=== PATIENT | male | born 1945 | race Caucasian/White ===

== ENCOUNTER 2017-07-16 10:19 | Day surgery (SDC) | payer MEDICARE, OTHER ==
[~2017-07-16] VITALS: Ht 185.4 cm; Wt 87.1 kg
[2017-07-16] MEDS ORDERED: IOHEXOL 350 MG/ML 100 ML BTL (for Cath Lab) OTHER ONE (10:20)
[2017-07-16] MEDS ORDERED: SODIUM CHLOR 0.9% 1000 ML INJ 1,000 ML IV SCH (11:00)
[2017-07-16 11:27] VITALS: BP 149/86; PULSE 51; RESP 17; TEMP 98.6; O2SAT 95
[2017-07-16] MEDS ORDERED: OMEGCAP PO (11:37)
[2017-07-16] MEDS ORDERED: CARV6.252 PO (11:37)
[2017-07-16] MEDS ORDERED: ASPI81TA11 PO (11:37)
[2017-07-16] MEDS ORDERED: ATOR40TA16 PO (11:37)
[2017-07-16 11:42] LABS: AUTOMATED NEUTROPHIL # 4.4 TH/MM3 (1.8-7.7); BASOPHIL % 0.4 % (0.0-2.0); EOSINOPHIL % 0.6 % (0.0-4.0); HEMO FLAGS DIFF FINAL; LYMPH % 19.5 % (9.0-44.0); LYMPHOCYTE # 1.2 TH/MM3 (1.0-4.8); MEAN CELL VOLUME 87.4 FL (80.0-100.0); MEAN CORPUSCULAR HEMOGLOBIN 28.9 PG (27.0-34.0); MEAN CORPUSCULAR HGB CONC 33.1 % (32.0-36.0); NEUT % 71.5 % (16.0-70.0); PLATELET COUNT 223 TH/MM3 (150-450); RED BLOOD COUNT 5.04 MIL/MM3 (4.50-5.90); WHITE BLOOD COUNT 6.1 TH/MM3 (4.0-11.0)
[2017-07-16 11:44] LABS: APTT (PATIENT) 27.3 SEC (24.3-30.1); PROTHROMBIN TIME - PATIENT 11.4 SEC (9.8-11.6)
[2017-07-16 11:48] LABS: BICARBONATE 27.5 MEQ/L (21.0-32.0); POTASSIUM 3.9 MEQ/L (3.5-5.1)
[2017-07-16] MEDS ORDERED: HEPARIN-NS/PF INJ 1,000 ML ONE (14:32)
[2017-07-16] MEDS ORDERED: MIDAZOLAM HCL 5 MG/5 ML VIAL ONE (14:33)
[2017-07-16] MEDS ORDERED: SODIUM CHLOR 0.9% 1000 ML INJ 500 ML IV SCH (15:54)
--- NOTE | 2017-07-16 15:58 | CATHPROC ---
[email or web address] HIS Report Study Information Study Number Admission Scheduled Start Study Start [id number] Jul 16 2017 10:19AM 07/16/2017 Jul 16 2017 2:29PM [place] [facility] Cardiac Catheterization Admit Source Facility Department Other [facility] - Human Resources Associate Physician and Clinical Staff Initial Peterson Cortés Concrete Rubber Shady Alvarenga,CRISTIANE Concrete Rubber Azul Farah,RN Recorder Azul Pereyra,RT(R) Scrub Oscar Bergman RCIS(BS) Procedures Performed Procedure Location (Site) Vessel Name Angiogram LV LV Ventricle Coronary Angiograms LCA Left Coronary Coronary Angiograms RCA Right Coronary L Heart Cath Wire insertion Fem Art (right) Femoral Art Equipment Time Housekeeping Associate Description Size Mfg Part Number Used/Scraped TRANSDUCER, BOB [id number] 14:34 Cloudy.fr * Used W/STOCKCOCK *[id number] 534-548T *[id number] 534-548T *[id number] 534-548T *[id number] 534-520T *[id number] 534-520T *[id number] 534-552S *[id number] 534-552S *[id number] 14:34 DescribeMe INDUSTRIES PACK, CCL CUSTOM * Used *[id number] 14:34 DescribeMe PACER PEN, SKIN DUAL W/ RULER * Used *[id number] 14:34 Superprotonic WIRE, 3MMJ .035 180CM 180CM Used *[id number] PROBE COVER, STERILE [id number] 14:34 [employer] MEDICAL * Used ULTRASOUND W/ GEL *[id number] 14:34 NAMIC MANIFOLD, 4 PORT * Used *[id number] 14:34 NAMIC TUBING, HIGH PRESSURE 48" 48" Used *[id number] 14:34 NYCOMED OMNIPAQUE, 350 MG, 150ML 150ML [id number] Used 15:07 NYCOMED OMNIPAQUE, 350 MG, 150ML 150ML [id number] Used [id number] 14:34 [employer] BL[employer],WARM AIR CCL * Used *[id number] 14:34 TERUMO MEDICAL SHEATH, FR5 TERUMO (10CM) FR 5 Used *[id number] History: Current Medications Medication Dosage/Unit Route Frequency Last Date/Time Taken ASA Statins (any) CARVEDILOL History: Allergies Allergy Reaction No Known Allergies History: Risk Factors Family History of Hypertension Dyslipidemia Previous ND Previous Heart Failure Premature CAD Yes Yes Yes No No Prior Valve Prior PCI Prior CABG Surgery No No No Cerebrovascular Peripheral Artery Chronic Lung On Dialysis Diabetes Disease Disease Disease No No No No No History: Stress Tests Stress or Imaging Studies Performed Yes Standard Exercise Stress Test No Stress Echo No Stress Test SPECT Stress Test SPECT Result Stress Test SPECT Ischemia Risk/Extent Yes Positive Intermediate Stress Test CMR No Cardiac CTA Coronary Calcium Score No No History: Other Disease Selection Items HTN History: Other Current Smoker Method Quit Packs a Day Years Used Pack Years No Cigarettes 40 Years Ago 2 20 40 Labs Hgb (g/dl) Hct (%) RBC (MIL/MM3) WBC (l/cumm) Platelets (thousands) 11.60-17.00 35.00-51.00 4.00-5.90 4.00-11.00 150.00-450.00 14.6 44 5 6.1 223 Glucose (mg/dl) BUN (mg/dl) Creatinine (mg/dl) BUN:Creatinine (1:x) 74.00-106.00 7.00-18.00 0.50-1.30 10.00-20.00 83 11 0.5 22 Na (meq/l) K (meq/l) Cl (meq/l) CO2 (mmol/L) Ca (mg/dl) 136.00-145.00 3.50-5.10 98.00-107.00 21.00-32.00 8.50-10.10 142 3.9 107 27.5 8.6 PT (sec) PTT (sec) INR (PTT:PT) 9.80-11.60 24.30-30.10 0.90-1.10 11.4 27.3 1 CPK-MB (ng/ML) 0.50-3.60 Not Drawn Medication Medication Total Dose (Bolus/Oral) Medication Total Dosage/Unit 1% XYLOCAINE 20 mL FENTANYL 125 mcg VERSED 5 mg Medications (Bolus/Oral) Medication Time Given Dosage/Unit Administered By Reason VERSED 07/16/2017 2:42:00 PM 2 mg Azul Farah 2 mg VERSED given in lab by Azul Farah RN via Peripheral IV. FENTANYL 07/16/2017 2:43:00 PM 50 mcg Azul Farah 50 mcg FENTANYL given in lab by Azul Farah RN via Peripheral IV. VERSED 07/16/2017 2:47:50 PM 1 mg Azul Farah 1 mg VERSED given in lab by Azul Farah RN via Peripheral IV. FENTANYL 07/16/2017 2:50:23 PM 25 mcg Azul Farah 25 mcg FENTANYL given in lab by Azul Farah RN via Peripheral IV. 1% XYLOCAINE 07/16/2017 2:50:50 PM 20 mL Peterson Campbell 20 mL 1% XYLOCAINE given in lab by Peterson Campbell in Right Groin via Subcutaneous. VERSED 07/16/2017 3:08:20 PM 2 mg Azul Farah 2 mg VERSED given in lab by Azul Farah RN via Peripheral IV. FENTANYL 07/16/2017 3:09:20 PM 50 mcg Azul Farah 50 mcg FENTANYL given in lab by Azul Farah RN via Peripheral IV. Medication (Drip) Medication Time Given Dosage/Unit Concentration/Unit Diluent (ml) Solution IV Solutions 07/16/2017 2:31:58 PM 0 mL (IV) 500 NaCl .9 IV Solutions given in lab by Azul Farah RN in Left Antecubital via Peripheral IV. Pump/Drip Flow = 20 ml/hr using NaCl .9. Initial Case Assessment Cardiovascular HR Rhythm NIBP Chest Pain 53 REG-PVC 152/68 0 Edema Present Skin color Skin None Normal Warm Dry Circulatory - Right Pulses Dorsalis Pedis Femoral 2 2 Scale (0,1,2,3,4,d) Circulatory - Left Pulses Dorsalis Pedis Femoral 2 2 Scale (0,1,2,3,4,d) Circulatory - Lower Extremities Color Lower Right Color Lower Left Normal Normal Neurological State Oriented to time-place- Alert Moves all extremities person Respiration - General Respiration Rate SpO2 (%) O2 (lpm) (B/min) 13 98 0 Final Case Assessment Cardiovascular HR Rhythm NIBP Chest Pain 54 REG-PVC 145/75 0 Edema Present Skin color Skin None Normal Warm Circulatory - Right Pulses Dorsalis Pedis Femoral 2 2 Scale (0,1,2,3,4,d) Circulatory - Left Pulses Dorsalis Pedis Femoral 2 2 Scale (0,1,2,3,4,d) Circulatory - Lower Extremities Color Lower Right Color Lower Left Normal Normal Neurological State Oriented to time-place- Alert Moves all extremities person Respiration - General Respiration Rate SpO2 (%) (B/min) 21 96 Chronological Log Time Study Chronological Log 14:28:00 Patient arrived via Bed. 14:29:01 Patient Name, D.O.B, / Armband Verified By R.N. 14:29:02 Consent signed by the physician and the patient and verified by the Human Resources Associate staff. 14:29:02 Pre-op and post- op instructions given; patient acknowledges understanding of instructions. 14:29:04 Verbal Stimulation=2 Physical Stimulation=2 Airway=2 Respiration=2 TOTAL=8. (0=absent, 1=li mited, 2=present) 14:31:00 Presedation assessment performed by Human Resources Associate RN. 14:31:27 Patient has been NPO for More than 6Hrs. 14:31:29 Skin Breakdown- none per patient. 14:31:38 Patient Warmer Placed on the Table. 14:31:41 Luis Alberto Prominences Protected 14:31:43 A # 20 IV was noted in the Antecubital (left). Grade = 0 IV Solutions given in lab by Azul Farah, RN in Left Antecubital via Peripheral IV. Pump/Dri p Flow = 20 ml/hr using 14:31:58 NaCl .9. Vitals capture started with the following parameters, Patient=Adult, Interval=5 min, Initial Pr bjbrdi=849 mmHg, 14:32:10 Deflation Rate=5 mmHg, Cuff placed on Left Leg 14:32:19 History and physical on the chart or being dictated. Assessment: Initial Case, HR=53 BPM, Rhythm=REG-PVC, ZFTG=071/68 mmhg, Chest Pain=0, Edema=None , Color=Normal, Skin = Warm, Dry Right Pulses: Edwar Ped=2, Femoral=2 Left Pulses: Edwar Ped=2, Femoral=2 14:32:21 Lower Right Extremities: Color=Normal Lower Left Extremities: Color=Normal Neurological: State=Alert, Ox3, SILVERIO Respiration: Resp=13 B/min, SpO2=98 %, O2=0 lpm 14:33:16 Reference ECG taken 14:33:19 HR=48 bpm, FKOY=607/68 mmhg, SpO2=98.0 %, Resp=13 B/min, Pain=0, Kim=10, Johnson=2 14:36:44 Bilateral groins prepped with 2% chlorhexidine, and with a 3 min. waiting time. 14:38:12 HR=50 bpm, HUIZ=493/81 mmhg, SpO2=98.0 %, Resp=21 B/min, Pain=0, Kim=10, Johnson=2 14:41:25 Pressure channel 1 zeroed. 14:42:00 2 mg VERSED given in lab by Azul Farah RN via Peripheral IV. 14:43:00 50 mcg FENTANYL given in lab by Azul Farah RN via Peripheral IV. 14:43:22 HR=56 bpm, XZNW=265/77 mmhg, SpO2=96.0 %, Resp=20 B/min, Pain=0, Kim=10, Johnson=2 14:45:03 MD arrived. 14:47:50 HR=55 bpm, OPSK=915/71 mmhg, SpO2=95 %, Resp=8 B/min, Pain=0, Kim=10, Johnson=2 14:47:50 1 mg VERSED given in lab by Azul Farah, CRISTIANE via Peripheral IV. Time Out. Correct patient, correct procedure,correct physician, ,power injector not loaded with contrast with surgical 14:50:15 team present. Time Out Concurred by MD, individual staff and SUPERVISOR ELECTRONICS PROCESSING in procedure 14:50:23 25 mcg FENTANYL given in lab by Azul Farah RN via Peripheral IV. 14:50:42 Case Start 14:50:44 Verbal Stimulation=2 Physical Stimulation=2 Airway=2 Respiration=2 TOTAL=8. (0=absent, 1=li mited, 2=present) 14:50:50 20 mL 1% XYLOCAINE given in lab by Peterson Campbell in Right Groin via Subcutaneous. 14:50:58 POWER INJECTOR LOADED NOW BY Joe FARAH AND VERIFIED BY Niharika BERGMAN 14:51:51 Verbal Stimulation=2 Physical Stimulation=2 Airway=2 Respiration=2 TOTAL=8. (0=absent, 1=li mited, 2=present) 14:52:32 Access site was Right Femoral Artery. 14:52:37 A wire was inserted via Fem Art (right). 14:52:38 A SHEATH, FR5 TERUMO (10CM) FR 5 was advanced into the Fem Art (right) using the Percutaneo us technique. A PIGTAIL ANG. INFINITI CATHETER FR 5 was advanced over a wire. OMNIPAQUE, 350 MG, 150ML 150ML was used 14:53:05 for injections. 14:53:30 HR=51 bpm, HMXY=345/72 mmhg, SpO2=96.0 %, Resp=16 B/min, Pain=0, Kim=10, Johnson=2 Recorded Pressure: LV, HR=50, Condition=Condition 1 14:53:33 (Left Ventricle) LV 151/8/13 14:53:51 The LV was injected at 10 cc/sec for a total of 30. OMNIPAQUE, 350 MG, 150ML 150ML used. Recorded Pressure: LV, Ao, HR=50, Condition=Condition 1 14:55:06 (Left Ventricle) LV 137/5/11, (Aorta) Ao 135/65/93 14:55:26 Catheter was removed A JL 4.0 INFINITI CATHETER FR 5 was advanced over a wire. OMNIPAQUE, 350 MG, 150ML 150ML was us ed for 14:55:47 injections. 14:56:13 Catheter was removed A AR MOD INFINITI CATHETER FR 5 was advanced over a wire. OMNIPAQUE, 350 MG, 150ML 150ML was us ed for 14:56:44 injections. 14:58:28 The RCA was injected and visualized at various angles. OMNIPAQUE, 350 MG, 150ML 150ML used . 14:58:29 HR=48 bpm, FKTA=201/74 mmhg, SpO2=95.0 %, Resp=21 B/min, Pain=0, Kim=10, Johnson=2 Recorded Pressure: Ao, HR=49, Condition=Condition 1 14:58:36 (Aorta) Ao 152/70/100 14:59:08 Catheter was removed A JL 5.0 INFINITI CATHETER FR 5 was advanced over a wire. OMNIPAQUE, 350 MG, 150ML 150ML was us ed for 14:59:28 injections. 15:01:12 The LCA was injected and visualized at various angles. OMNIPAQUE, 350 MG, 150ML 150ML used . 15:02:51 HR=59 bpm, ZVUR=019/75 mmhg, SpO2=96.0 %, Resp=13 B/min, Pain=0, Kim=10, Johnson=2 15:03:29 Case End Assessment: Final Case, HR=54 BPM, Rhythm=REG-PVC, MUTC=102/75 mmhg, Chest Pain=0, Edema=None, Color=Normal, Skin = Warm Right Pulses: Edwar Ped=2, Femoral=2 Left Pulses: Edwar Ped=2, Femoral=2 15:05:24 Lower Right Extremities: Color=Normal Lower Left Extremities: Color=Normal Neurological: State=Alert, Ox3, SILVERIO Respiration: Resp=21 B/min, SpO2=96 % 15:06:12 Catheter(s) removed without difficulty 15:06:19 Sterile dressing applied to site 15:06:19 No case complications noted. 15:06:20 Cine recording checked. 15:06:23 Bedside Report will be given. 15:06:25 Contrast Scanned 15:06:29 A Left Heart Cath was performed. 15:07:00 Patient moved to stretcher 15:07:02 Clinical correlaton risk stratification. 15:07:52 HR=57 bpm, GFHF=594/76 mmhg, SpO2=97.0 %, Resp=11 B/min, Pain=0, Kim=10, Johnson=2 15:08:20 2 mg VERSED given in lab by Azul Farah, CRISTIANE via Peripheral IV. 15:09:20 50 mcg FENTANYL given in lab by Azul Farah, CRISTIANE via Peripheral IV. 15:13:30 HR=53 bpm, OFLP=674/76 mmhg, SpO2=97.0 %, Resp=14 B/min, Pain=0, Kim=10, Johnson=2 15:14:14 Sheath removed; pressure applied to access site. OSCAR BERGMAN 15:17:50 HR=52 bpm, BJUO=547/81 mmhg, SpO2=96.0 %, Resp=17 B/min, Pain=0, Kim=10, Johnson=2 15:22:51 HR=49 bpm, FOVF=289/86 mmhg, SpO2=95.0 %, Resp=26 B/min, Pain=0, Kim=10, Johnson=2 15:28:37 HR=50 bpm, DYPW=815/74 mmhg, SpO2=95.0 %, Resp=21 B/min, Pain=0, Kim=10, Johnson=2 15:29:02 HEMOSTASIS ACHIEVED 15:32:21 Vitals capture stopped. End Study - Contrast Media Used In Study Contrast Total Opened (mL) Total Used (mL) Total Wasted (mL) Omnipaque 80 80 0 End Study - Maximum Contrast Load Max Contrast Load (mL) 870.9 End Study - Radiation Exposure Fluoro Time (minutes) 1.8 End Study - Patient Disposition Complications Transferred To No Outpatient Bed
--- NOTE | 2017-07-16 16:42 | MR ---
cc: JOSE M RESENDIZ DATE: 07/16/2017 INDICATION Ischemic cardiomyopathy, moderate risk nuclear myocardial perfusion study, abnormal electrocardiogram. PREOPERATIVE EVALUATION PROCEDURE PERFORMED 1. Retrograde left heart catheterization with left ventriculography and selective coronary angiography. 2. Moderate sedation. ACCESS SITE: Right femoral artery. EQUIPMENT USED: 5 Sammarinese pigtail catheter. 5 Sammarinese JL 5 AR-1 modified coronary catheters. MEDICATIONS Versed. Fentanyl CONTRAST: IV contrast Omnipaque 80 cc. COMPLICATIONS None. BLOOD LOSS Less then 10 cc. METHOD OF HEMOSTASIS: Manual compression. RESULTS 1. Hemodynamics: Heart rate of 58 mmHg. Left ventricular end-diastolic pressure 5 mmHg. Left ventricle 140/5. Aorta 140/70/100. 2. Left ventriculography: Left ventricular ejection fraction 45%, wall motion - lateral hypokinesis, no mitral regurgitation. 3. Coronary angiography: Left main coronary artery patent. Left anterior descending coronary artery patent. D1 patent. Left circumflex artery has 40% stenosis in the mid portion, OM1 patent. OM2 patent. The right coronary is a dominant vessel which is patent, PDA patent, PLV patent. DIAGNOSIS: 1. Mild coronary artery disease. 2. Mild left ventricular systolic dysfunction. DISPOSITION: Mr. Schwarz will be reassured about his cardiac status. His study revealed no evidence of significant obstructive coronary disease and mild left ventricular systolic function. He can be cleared for his upcoming orthopedic surgery. His risk of perioperative complications is low. We will continue medical management including aggressive modification of his cardiac risk factors. I will see him back for followup in our office after discharge. MD REJI Salguero/parviz /3:51 PM /4:00 PM CITLALI
[2017-07-16 17:05] LABS: HDL CHOLESTEROL 59.8 MG/DL (40.0-60.0)
== END 2017-07-16 19:45 | disposition home or self-care (01) ==
LOC: HDOC 10:19 → HDIC 10:20 → HDOC 19:45
PROVIDERS: ATTEND Internal Medicine Interventional Cardiology
DX: I25.10 Atherosclerotic heart disease of native coronary artery without angina pectoris (principal); I25.5 Ischemic cardiomyopathy; I10 Essential (primary) hypertension; G47.33 Obstructive sleep apnea (adult) (pediatric); E78.5 Hyperlipidemia, unspecified; M25.562 Pain in left knee; M19.90 Unspecified osteoarthritis, unspecified site; Z01.818 Encounter for other preprocedural examination; Z01.810 Encounter for preprocedural cardiovascular examination
CPT/HCPCS: 80048; 80061; 85025; 85610; 85730; 93458; C1769; C1893; J1644; J2250; J3010; Q9967

== ENCOUNTER → 2017-10-25 | Outpatient (CLI) | payer MEDICARE, OTHER ==
[~2017-10-25] MED LIST: ASPI81TA23 PO; ATOR40TA16 PO; CARV6.252 PO; OMEGCAP PO
[2017-10-25 09:35] LABS: AUTOMATED NEUTROPHIL # 5.6 TH/MM3 (1.8-7.7); BASOPHIL # 0.1 TH/MM3 (0-0.2); BASOPHIL % 0.7 % (0.0-2.0); EOSINOPHIL # 0.1 TH/MM3 (0-0.4); EOSINOPHIL % 1.2 % (0.0-4.0); HEMATOCRIT 42.4 % (39.0-51.0); HEMO FLAGS DIFF FINAL; LYMPH % 16.6 % (9.0-44.0); LYMPHOCYTE # 1.3 TH/MM3 (1.0-4.8); MEAN CELL VOLUME 87.4 FL (80.0-100.0); MEAN CORPUSCULAR HEMOGLOBIN 29.4 PG (27.0-34.0); MEAN CORPUSCULAR HGB CONC 33.7 % (32.0-36.0); MONO % 8.4 % (0.0-8.0); NEUT % 73.1 % (16.0-70.0); PLATELET COUNT 220 TH/MM3 (150-450); RED BLOOD COUNT 4.86 MIL/MM3 (4.50-5.90); RED CELL DISTRIBUTION WIDTH 13.1 % (11.6-17.2); WHITE BLOOD COUNT 7.6 TH/MM3 (4.0-11.0)
[2017-10-25 09:43] LABS: INTERNATIONAL NORMALIZED RATIO 1.1 RATIO; PROTHROMBIN TIME - PATIENT 10.8 SEC (9.8-11.6)
[2017-10-25 09:52] LABS: WESTERGREN SEDIMENTATION RATE 42 mm/hr (0-20)
[2017-10-25 09:58] LABS: BACTERIA, URINE RARE /hpf; BLOOD, URINE TRACE (NEG); COMMENT (UR) CULT NOT INDICATED; CULTURE IF INDICATED CULT NOT INDICATED; GLUCOSE,URINE NEG (NEG); KETONE, URINE NEG (NEG); NITRITE,URINE NEG (NEG); PH, URINE 6.5 (5.0-8.5); URINE COLOR YELLOW (YELLW/STRAW)
[2017-10-25 09:59] LABS: ANION GAP 7 MEQ/L (5-15); AST (GOT) 25 U/L (15-37); BICARBONATE 27.2 MEQ/L (21.0-32.0); BLOOD UREA NITROGEN 9 MG/DL (7-18); CHLORIDE 104 MEQ/L (98-107); GLOMERULAR FILTRATION RATE 104 ML/MIN (>89); GLUCOSE,FASTING 77 MG/DL (74-99); POTASSIUM 4.1 MEQ/L (3.5-5.1); SODIUM (NA) 138 MEQ/L (136-145)
--- NOTE | 2017-10-25 09:59 | RADRPT ---
EXAM DATE/TIME: 10/25/2017 09:45 [facility] COMPARISON: No previous studies available for comparison. INDICATIONS : Evaluate for pneumonia, pneumothorax or communicable disease. Left knee replacement on 11/11/17. MEDICAL HISTORY : Myocardial infarction. SURGICAL HISTORY : None. ENCOUNTER: Initial ACUITY: 1 day PAIN SCORE: 0/10 LOCATION: Bilateral chest FINDINGS: PA and lateral views of the chest demonstrate the lungs to be symmetrically aerated without evidence of mass, infiltrate or effusion. The cardiomediastinal contours are unremarkable. Osseous structure s are intact. CONCLUSION: No acute disease. Kamaljit Kelly MD FACR on October 25, 2017 at 9:56 Board Certified Radiologist. This report was verified electronically.
[2017-10-25 10:00] LABS: ALT (GPT) 46 U/L (12-78)
[2017-10-25 10:03] LABS: ALKALINE PHOSPHATASE 91 U/L (45-117); TOTAL BILIRUBIN ADULT 0.5 MG/DL (0.2-1.0)
--- NOTE | 2017-10-27 23:45 | EKG ---
Date Performed: 10/25/2017 Time Performed: 09:19:48 PTAGE: 72 years EKG: SINUS BRADYCARDIA WITH FIRST DEGREE AV BLOCK MODERATE INTRAVENTRICULAR CONDUCTION DELAY ABN ORMAL ECG NO PREVIOUS TRACING DOCTOR: Dylon Chávez Interpretating Date/Time 10/27/2017 23:43:05
== END ==
LOC: CPRE 08:59
PROVIDERS: ATTEND Orthopaedic Surgery Sports Medicine
DX: Z01.812 Encounter for preprocedural laboratory examination (principal); Z01.810 Encounter for preprocedural cardiovascular examination; Z01.811 Encounter for preprocedural respiratory examination; M17.12 Unilateral primary osteoarthritis, left knee
CPT/HCPCS: 36415; 71020; 80053; 81001; 85025; 85610; 85652; 85730; 93005

== ENCOUNTER 2017-11-11 08:14 | Inpatient (IN) | payer MEDICARE, OTHER ==
[~2017-11-11] VITALS: Ht 185.4 cm; Wt 88.9 kg
[2017-11-11] MEDS ORDERED: HYDR-3288 PO (08:36)
[2017-11-11] MEDS ORDERED: ENOX40P SQ (08:37)
[2017-11-11] MEDS ORDERED: ASPI81CH6 CHEW (08:38)
[2017-11-11] MEDS ORDERED: Post-op Orders (for Pharmacy) XX ONE (08:45)
[2017-11-11] MEDS ORDERED: ceFAZolin 2 GM PREMIX 50 ML IV SCH (09:45)
[2017-11-11] MEDS ORDERED: POVIDONE IODINE 7.5% SCRUB 118 ML BOTTLE TOPICAL SCH (09:45)
[2017-11-11] MEDS ORDERED: CHLORHEXIDINE GLUCONATE 4% SOLN 120 ML BTL TOPICAL SCH (09:45)
[2017-11-11] MEDS ORDERED: POVIDONE IODINE 5% (ANTISEPSIS KIT) 4 APPLICATIONS EACH NARE PRN (09:45)
[2017-11-11] MEDS ORDERED: METOPROLOL TARTRATE 25 MG TAB PO PRN (09:45)
[2017-11-11] MEDS ORDERED: INSULIN HUMAN REGULAR 1,000 UNITS/10 ML VIAL SQ PRN (09:45)
[2017-11-11] MEDS ORDERED: LACTATED RINGER'S 1000 ML IV PRN (09:45)
[2017-11-11] MEDS ORDERED: CHLORHEXIDINE GLUCONATE 2 % 1 PACK (2 CLOTHS) TOPICAL PRN (09:45)
[2017-11-11] MEDS ORDERED: SODIUM CHLORID 0.9% 500 ML IV PRN (09:45)
[2017-11-11] MEDS ORDERED: VANCOMYCIN 1000 MG/NS 250 ML (for <70 kg) IV SCH ×2 (09:45)
[2017-11-11] MEDS ORDERED: TRANEXAMIC PERI-ARTICULAR 3,000 MG/NS 100 ML P-ARTICULR SCH ×2 (09:45)
[2017-11-11] MEDS ORDERED: ONDANSETRON HCL 4 MG/2 ML VIAL IVP PRN (10:00)
[2017-11-11] MEDS ORDERED: diphenhydrAMINE HCL 50 MG/ML VIAL IV PUSH PRN (10:00)
[2017-11-11] MEDS: SODIUM CHLOR 0.9% 1000 ML INJ 1,000 ML IV SCH (10:00)
[2017-11-11] MEDS ORDERED: ZOLPIDEM TARTRATE 5 MG TAB PO PRN (10:00)
[2017-11-11] MEDS: CARVEDILOL 6.25 MG TAB PO SCH ×2 (10:00→21:51)
[2017-11-11] MEDS ORDERED: BISACODYL 10 MG SUPP RECTAL PRN (10:00)
[2017-11-11] MEDS ORDERED: ROPIVACAINE PERI-ARTICULAR INJECTION. P-ARTICULR SCH ×5 (10:00)
[2017-11-11] MEDS ORDERED: MORPHINE SULFATE 2 MG/ML INJ IV PUSH PRN (10:00)
[2017-11-11] MEDS ORDERED: ACETAMINOPHEN/HYDROcodone 325 MG/7.5 MG TAB PO PRN (10:00)
[2017-11-11] MEDS ORDERED: TRANEXAMIC ACID INJ 1,330 MG in SODIUM CHLORIDE 0.9% INJ 100 ML IV SCH (10:00)
[2017-11-11] MEDS ORDERED: BUPIVACAINE LIPOSOME PF 1.3% 20 ML VIAL ONE ×2 (10:05→10:46)
[2017-11-11] MEDS ORDERED: DEXAMETHASONE SOD PHOS 20 MG/5 ML VIAL IV SCH (11:00)
[2017-11-11] MEDS ORDERED: GENTAMICIN SULFATE 80 MG/2 ML VIAL ONE ×2 (11:26→11:28)
[2017-11-11] MEDS ORDERED: ONDANSETRON HCL 4 MG/2 ML VIAL IV ONE (12:00)
[2017-11-11] MEDS ORDERED: ROCURONIUM INJ 50 MG/5 ML SYRINGE IV PUSH ONE (12:00)
[2017-11-11] MEDS ORDERED: PROPOFOL 200 MG/20 ML AMP IV ONE (12:00)
[2017-11-11] MEDS ORDERED: SODIUM CHLORIDE 0.9% 20 ML VIAL IV ONE (12:00)
[2017-11-11] MEDS ORDERED: ePHEDrine/NS 25 MG/5 ML SYRINGE IV ONE (12:00)
[2017-11-11] MEDS ORDERED: DO NOT ADM ANY ANTICOAGULANT DRUGS PRN (13:07)
--- NOTE | 2017-11-11 13:23 | MP ---
cc: MATHEW MONREAL M.D. DATE OF SURGERY: 11/11/2017 PREOPERATIVE DIAGNOSIS Left knee osteoarthritis. POSTOPERATIVE DIAGNOSIS Left knee osteoarthritis. PROCEDURE Left total knee arthroplasty. SURGEON Dr. Mathew Monreal. HIGH LIFT MULE OPERATOR MADI Chaparro. ANESTHESIA Spinal with an adductor canal nerve block. ESTIMATED BLOOD LOSS 50 cc. TOURNIQUET TIME 26 minutes at 250 mmHg. COMPLICATIONS None. IMPLANTS USED DePuy Attune, size 8 posterior stabilized femoral component, size 8 rotating platform tibia baseplate, size 5 mm polyethylene tibial insert, size 38 patella. JUSTIFICATION This patient is a 72-year-old male with a history of significant osteoarthritis involving the left knee. He has severe disabling pain with standing, walking and weightbearing activities which has been progressive in nature and failure of conservative treatment. Conservative treatment has consisted of medication, therapy, injections, ambulatory assisted aids, home exercise program and activity modification. The patient is not overweight. X-rays of the left knee reveal degenerative osteoarthritis with joint space narrowing, subchondral sclerosis, subchondral cysts, osteophyte formation and associated deformity. The patient was counseled of the risks, benefits and alternatives to a total knee arthroplasty. The risks were discussed which include but limited to anesthesia, bleeding, infection, damage to nerves and blood vessels, pain, stiffness, failure of components, blood clots, pulmonary embolism and . The patient's pain is severe. He favored the benefits over the risks. He did wish to proceed with surgery. PROCEDURE IN DETAIL A written consent was obtained. The patient was identified by name, taken to the operating room and placed supine on the operating table. Spinal anesthesia was administered as well as two grams of IV Ancef and one gram of IV vancomycin. A well-padded tourniquet was placed on the left thigh. The left lower extremity was prepped and draped using isopropyl alcohol, Hibiclens solution and ChloraPrep solution. After a timeout was performed an Esmarch bandage was used to exsanguinate the left lower extremity and tourniquet inflated to 250 mmHg. A longitudinal incision was made over the anterior aspect of the left knee. A medial parapatellar arthrotomy was performed. The patella was everted. A patellar resection guide was used to resect 9 mm of patella. The size 38 mm guide was placed. Three drill holes were placed. The 38 mm trial fit well. Attention was turned to the femur. An intramedullary guide was placed. The distal femoral guide was set to remove 10 mm of distal femur 5 degrees off the anatomic valgus axis alignment. An oscillating saw was used to perform the distal femoral cut. Attention was turned to the tibia where an extramedullary tibial guide was set to remove 5 mm off the lowest portion of the medial tibial plateau. The tibia guide was pinned in place and the tibia cut was performed. A 5 mm spacer block showed full extension. Attention was turned back to the femur where the AP sizing block measured size 8. The anterior reference 3 degree external rotation guide was used to pin a size [address] The anterior, posterior and chamfer cuts were performed. A size 8 PCL box guide was pinned in place and the PCL was box cut with an oscillating saw. The medial and lateral meniscus remnants were removed as well as bone and soft tissue debris from the posterior portion of the knee. A size 8 tibia baseplate was pinned in place and the tibia was drilled and punched. The trial components were evaluated and final components cemented in place. With the current components the leg could achieve full extension to 0 degrees and flexion to 140. There was no evidence of tibial lift-off. Varus-valgus balance appeared appropriate and symmetric and the patella was noted to track centrally. The tourniquet was deflated. Bovie cautery was used for hemostasis. The surgical wound was thoroughly irrigated with sterile saline pulse lavage antibiotic-impregnated solution. The arthrotomy incision was closed with #1 Vicryl suture, the subcutaneous layer with 2-0 Vicryl suture and the skin was closed with Dermabond. Sterile dressing was applied. The patient tolerated the procedure well with no intraoperative complications noted. Otis Hooper, physician business assistant certified, was present during the entire procedure to include patient positioning and the procedure itself. The medical necessity of a physician business assistant was indicated in this case due to the complexity of the procedure. He assisted with appropriate manipulation of the leg and also retraction of muscle, tendon, bone and neurovascular structures. He assisted with preparation of bone and also implantation of the prosthetic replacement. MD MALIHA Jaquez/LYNETTE /12:45 PM /1:03 PM
[2017-11-11] MEDS ORDERED: MIDAZOLAM HCL 2 MG/2 ML VIAL ONE (13:26)
--- NOTE | 2017-11-11 14:33 | RADRPT ---
EXAM DATE/TIME: 11/11/2017 13:32 [facility] COMPARISON: No previous studies available for comparison. INDICATIONS : Post op left knee surgery. MEDICAL HISTORY : None. SURGICAL HISTORY : None. ENCOUNTER: Initial ACUITY: 1 day PAIN SCORE: 0/10 LOCATION: Left knee FINDINGS: 2 views of the knee show a total knee prosthesis in good position. No fracture or dislocation is obse rved. Soft tissue swelling is noted. Air is noted within the joint. CONCLUSION: Total knee arthroplasty in good position. Luis Jo Jr., MD on November 11, 2017 at 14:31 Board Certified Radiologist. This report was verified electronically.
[2017-11-11 16:00] VITALS: BP 123/65; PULSE 66; RESP 19; TEMP 95.8; O2SAT 92
--- NOTE | 2017-11-11 16:20 | PD.CONS ---
HPI Service [facility] Hospitalists Consult Requested By Dr. Rodriguez Reason for Consult Medical management Primary Care Physician Alyssa Veronica M.D. Diagnoses: (1) Hypertension (2) Primary localized osteoarthrosis, lower leg History of Present Illness 72 Y/O male with medical history significant for HTN, osteoarthritis admitted for left knee arthroplasty. The patient has been having issues with osteoarthritis of his knees. He has been followed by orthopedics and medical therapy. He was admitted for left knee arthroplasty. Hospitalist service consulted for medical management. He does have hypertension that has been controlled. He did have preoperative testing including a heart catheterization by court officer, Dr. lang. He was found to have mild CAD and mild LV dysfunction. He denies having any chest pain or shortness of breath on exertion. Patient is seen postoperatively in the recovery area. He reports his pain is controlled. No complaints. Review of Systems Constitutional: DENIES: Fever, Chills Musculoskeletal: COMPLAINS OF: Joint pain, Stiffness Except as stated in HPI: all other systems reviewed are Neg Past Family Social History Allergies: Coded Allergies: No Known Allergies (Verified , 11/11/17) Past Medical History Hypertension Mild CAD Mild LV dysfunction Osteoarthritis Past Surgical History Right knee reconstructive surgery. Reported Medications Reported Meds & Active Scripts Active Aspirin Low Dose (Aspirin) 81 Mg Chew 81 Mg CHEW BID 30 Days Lovenox Inj (Enoxaparin Sodium) 40 Mg/0.4 Ml Syr 40 Mg SQ DAILY [place] (Hydrocodone-Acetaminophen) 7.5-325 mg Tab 1-2 Tab PO Q6H PRN Reported [place]-3 Fish Oil/Vitamin (Fish Oil-Cholecalciferol) 1,000-1,000 Mg Cap 1 Cap PO DAILY Aspirin EC (Aspirin) 81 Mg Tabdr 81 Mg PO DAILY Atorvastatin (Atorvastatin Calcium) 40 Mg Tab 40 Mg PO HS Carvedilol 6.25 Mg Tab 6.25 Mg PO BID Family History Both parents with history of hypertension and hyperlipidemia Social History Patient does not use tobacco or alcohol. Physical Exam Vital Signs Vital Signs Date Time Temp Pulse Resp B/P (MAP) Pulse Ox O2 Delivery O2 Flow Rate FiO2 11/11/17 14:30 97.7 88 12 129/61 (83) 97 Nasal Cannula 2 11/11/17 14:15 74 16 119/58 (78) 96 Nasal Cannula 2 11/11/17 14:00 80 15 130/62 (84) 96 Nasal Cannula 2 11/11/17 13:45 58 18 144/69 (94) 96 Nasal Cannula 2 11/11/17 13:30 56 16 114/60 (78) 95 Nasal Cannula 2 11/11/17 13:15 80 12 136/74 (94) 94 Nasal Cannula 2 11/11/17 13:08 97.5 68 18 133/60 (84) 93 Nasal Cannula 2 11/11/17 09:15 97.9 51 18 139/72 (94) 96 Physical Exam CONSTITUTIONAL/GENERAL: This is an adequately nourished patient, in no apparent distress. Vital signs reviewed SKIN: No jaundice, rashes, or concerning lesions. Not diaphoretic. HEAD: Atraumatic. Normocephalic. EYES: Pupils equal and round and reactive. Extra ocular motions are intact. No scleral icterus. No injection or drainage. ENT: Hearing grossly normal. Nose without drainage. Throat without visible erythema, exudates, masses, or lesions. NECK: Trachea midline. Neck is supple, non-tender. No palpable thyroid enlargement or nodularity. CARDIOVASCULAR: Normal rate and regular rhythm without murmurs, gallops, or rubs. No JVD. Peripheral pulses 2+ and symmetric. RESPIRATORY/CHEST: Symmetric, unlabored respirations. Breath sounds equal and clear to auscultation bilaterally. No wheezes, crackles, rales, or rhonchi. GASTROINTESTINAL: Abdomen soft, non-tender, non-distended. No hepato- splenomegaly, or palpable masses. No guarding. Bowel sounds present. MUSCULOSKELETAL: Left knee in a postoperative splint. Neurovascularly intact at the toes. No lower extremity edema. NEUROLOGICAL: Awake and alert. Motor and sensory grossly within normal limits. Follows commands. Move all extremities spontaneously. No focal deficits. PSYCHIATRIC: No obvious mood problems. No apparent hallucinations or other psychotic thought process. Imaging Last Impressions Knee X-Ray 11/11/17 0813 Signed Impressions: Service Date/Time: Saturday, November 11, 2017 13:32 - CONCLUSION: Total knee arthroplasty in good position. Luis Jo Jr., MD Assessment and Plan Problem List: (1) CAD (coronary artery disease) ICD Code: I25.10 - Atherosclerotic heart disease of [place] coronary artery without angina pectoris (2) Primary localized osteoarthrosis, lower leg ICD Code: M17.10 - Unilateral primary osteoarthritis, unspecified knee (3) Hypertension ICD Code: I10 - Essential (primary) hypertension Assessment and Plan 72-year-old male admitted with: Osteoarthritis of the left knee status post arthroplasty: - Continue routine postoperative care per orthopedics. - Pain control - PT. Hypertension: - Continue Coreg Mild CAD: Recent heart catheterization. No obstructive lesions. - Continue Coreg, aspirin, and statin GI prophylaxis:Stool softener PRN constipation. DVT PPx: Pharmacologic prophylaxis when okay with orthopedics. Erlin Orellana MD Nov 11, 2017 16:20
--- NOTE | 2017-11-11 17:31 | HHI.FF ---
Face to Face Verification Diagnosis: (1) Primary localized osteoarthrosis, lower leg Physical Therapy Gait training, Safety evaluation, Transfer training, bed to chair Knee: Total knee, Protocol: Left, Full weight bearing Left LE Weight Bearing: WB as tolerated Nursing RN: 3 days/week x 2 weeks Nursing: Magdy teaching, Dressing changes Dressing Changes: Daily dressing change I have seen patient Juliocesar Schwarz on 11/11/17. My clinical findings support the need for the requested home health care services because: Limited ability to care for self High risk of falls I certify that my clinical findings support that this patient is homebound because: Post-op weakness Unsteady gait/balance Alexandro Hooper Nov 11, 2017 17:31
--- NOTE | 2017-11-11 17:31 | HHI.DCPOC ---
Discharge Care Plan Diagnosis: (1) Primary localized osteoarthrosis, lower leg Your Health Problems Are: Difficulty with ADL Goals to Promote Your Health * To prevent worsening of your condition and complications * To maintain your health at the optimal level Directions to Meet Your Goals Take your medications as prescribed Follow your dietary instruction Follow activity as directed Keep your appointments as scheduled Take your immunizations and boosters as scheduled If your symptoms worsen call your PCP, if no PCP go to Urgent Care Center or Emergency Room Smoking is Dangerous to Your Health. Avoid second hand smoke Call the 24-hour hour crisis hotline for domestic abuse at Alexandro Hooper Nov 11, 2017 17:31
[2017-11-11] MEDS ORDERED: WALKER WHEELS/F1 MIS (17:33)
[2017-11-11] MEDS ORDERED: COMMODE 3-IN-11 MIS (17:33)
[2017-11-11] MEDS ORDERED: CPMMACHINE (17:33)
[2017-11-11 20:14] VITALS: BP 106/60; PULSE 68; RESP 17; TEMP 97.1; O2SAT 93
[2017-11-11 23:25] VITALS: BP 102/57; PULSE 62; RESP 16; TEMP 96.2; O2SAT 93
[2017-11-12] MEDS: SODIUM CHLOR 0.9% 1000 ML INJ 1,000 ML IV SCH ×2 (01:26→06:00)
[2017-11-12 04:54] VITALS: BP 117/67; PULSE 52; RESP 17; TEMP 96.5; O2SAT 97
[2017-11-12] MEDS: ACETAMINOPHEN/HYDROcodone 325 MG/7.5 MG TAB PO PRN ×3 (07:23→12:33)
[2017-11-12] MEDS: CARVEDILOL 6.25 MG TAB PO SCH (07:23)
[2017-11-12 08:00] VITALS: BP 142/75; PULSE 56; RESP 20; TEMP 97.4; O2SAT 96
--- NOTE | 2017-11-12 08:36 | PD.ORT.PN ---
Subjective Post Op Day #: 1 Subjective Remarks minimal pain Objective Vitals Vital Signs Date Time Temp Pulse Resp B/P (MAP) Pulse Ox O2 Delivery O2 Flow Rate FiO2 11/12/17 04:54 96.5 52 17 117/67 (84) 97 11/11/17 23:25 96.2 62 16 102/57 (72) 93 11/11/17 20:14 97.1 68 17 106/60 (75) 93 11/11/17 16:00 95.8 66 19 123/65 (84) 92 11/11/17 14:30 97.7 88 12 129/61 (83) 97 Nasal Cannula 2 11/11/17 14:15 74 16 119/58 (78) 96 Nasal Cannula 2 11/11/17 14:00 80 15 130/62 (84) 96 Nasal Cannula 2 11/11/17 13:45 58 18 144/69 (94) 96 Nasal Cannula 2 11/11/17 13:30 56 16 114/60 (78) 95 Nasal Cannula 2 11/11/17 13:15 80 12 136/74 (94) 94 Nasal Cannula 2 11/11/17 13:08 97.5 68 18 133/60 (84) 93 Nasal Cannula 2 11/11/17 09:15 97.9 51 18 139/72 (94) 96 I/O 11/11/17 11/11/17 11/11/17 11/12/17 11/12/17 11/12/17 07:00 15:00 23:00 07:00 15:00 23:00 Intake Total 1500 ml 240 ml 240 ml Output Total 1600 ml 400 ml 300 ml Balance -100 ml 240 ml -160 ml -300 ml Intake Oral 240 ml 240 ml Other 1500 ml Output Urine Total 1500 ml 400 ml 300 ml Estimated Blood Loss 100 ml # Voids 0 # Bowel Movements 0 0 Objective Remarks in bed, nad incision no erythema, no drainage able to do straight leg raise neg homans nvi Assessment & Plan Ortho Post Op Day #: 1 Problem List: Assessment and Plan s/p L TKA wbat daily dressing changes lovenox d/c planning home with hhc and pt - cleared today if does well in PT rx in chart f/up dr. santiago 2 weeks Alexandro Hooper Nov 12, 2017 08:36
[2017-11-12 08:42] LABS: HEMATOCRIT 38.5 % (39.0-51.0); MEAN CELL VOLUME 86.7 FL (80.0-100.0); MEAN CORPUSCULAR HGB CONC 33.4 % (32.0-36.0); PLATELET COUNT 232 TH/MM3 (150-450); RED BLOOD COUNT 4.45 MIL/MM3 (4.50-5.90); RED CELL DISTRIBUTION WIDTH 12.4 % (11.6-17.2); REVIEW FLAG FINAL; WHITE BLOOD COUNT 18.4 TH/MM3 (4.0-11.0)
[2017-11-12 09:06] LABS: BICARBONATE 25.8 MEQ/L (21.0-32.0); POTASSIUM 4.2 MEQ/L (3.5-5.1)
--- NOTE | 2017-11-12 09:35 | HHI.PR ---
Subjective Remarks Patient reports is feeling great. Eager to go home today. Objective Vitals Vital Signs Date Time Temp Pulse Resp B/P (MAP) Pulse Ox O2 Delivery O2 Flow Rate FiO2 11/12/17 04:54 96.5 52 17 117/67 (84) 97 11/11/17 23:25 96.2 62 16 102/57 (72) 93 11/11/17 20:14 97.1 68 17 106/60 (75) 93 11/11/17 16:00 95.8 66 19 123/65 (84) 92 11/11/17 14:30 97.7 88 12 129/61 (83) 97 Nasal Cannula 2 11/11/17 14:15 74 16 119/58 (78) 96 Nasal Cannula 2 11/11/17 14:00 80 15 130/62 (84) 96 Nasal Cannula 2 11/11/17 13:45 58 18 144/69 (94) 96 Nasal Cannula 2 11/11/17 13:30 56 16 114/60 (78) 95 Nasal Cannula 2 11/11/17 13:15 80 12 136/74 (94) 94 Nasal Cannula 2 11/11/17 13:08 97.5 68 18 133/60 (84) 93 Nasal Cannula 2 I/O 11/11/17 11/11/17 11/11/17 11/12/17 11/12/17 11/12/17 06:59 14:59 22:59 06:59 14:59 22:59 Intake Total 1500 ml 240 ml 240 ml Output Total 1600 ml 400 ml 300 ml Balance -100 ml 240 ml -160 ml -300 ml Intake Oral 240 ml 240 ml Other 1500 ml Output Urine Total 1500 ml 400 ml 300 ml Estimated Blood Loss 100 ml # Voids 0 # Bowel Movements 0 0 Result Diagram: 11/12/17 0811/12/17 0812 Objective Remarks GENERAL: This is a well-nourished, well-developed patient, in no apparent distress. CARDIOVASCULAR: Normal rate and regular rhythm without murmurs, gallops, or rubs. RESPIRATORY: Good respiratory efforts. Breath sounds equal and clear to auscultation bilaterally. GASTROINTESTINAL: Abdomen soft, non-tender, non-distended. Normal active bowel sounds MUSCULOSKELETAL: Left knee postop dressing intact. Neurovascularly intact distally. NEURO: Alert & Oriented x4 to person, place, time, situation. Moves all ext x4 PSYCH: Appropriate mood and affect. A/P Problem List: (1) CAD (coronary artery disease) ICD Code: I25.10 - Atherosclerotic heart disease of [place] coronary artery without angina pectoris (2) Primary localized osteoarthrosis, lower leg ICD Code: M17.10 - Unilateral primary osteoarthritis, unspecified knee (3) Hypertension ICD Code: I10 - Essential (primary) hypertension Assessment and Plan 72-year-old male admitted with: Osteoarthritis of the left knee status post arthroplasty: - Continue routine postoperative care per orthopedics. - Pain control - PT. Hypertension: - Continue Coreg Mild CAD: Recent heart catheterization. No obstructive lesions. - Continue Coreg, aspirin, and statin GI prophylaxis:Stool softener PRN constipation. Cleared for discharge from the hospitalist standpoint. Problem Qualifiers (1) Primary localized osteoarthrosis, lower leg: Qualified Codes: M17.12 - Unilateral primary osteoarthritis, left knee Erlin Orellana MD Nov 12, 2017 09:35
[2017-11-12] MEDS ORDERED: INFLUENZA VIRUS VACCINE (QUADRIVALENT) 0.5 ML SYR IM ONE (10:00)
[2017-11-12 12:00] VITALS: BP 133/70; PULSE 49; RESP 20; TEMP 96.3; O2SAT 97
[2017-11-12] MEDS ORDERED: ENOXAPARIN SODIUM 40 MG/0.4 ML SYRINGE SQ SCH (12:30)
[2017-11-12] MEDS ORDERED: DOCUSATE SODIUM 100 MG CAP PO SCH (21:00)
[2017-11-12] MEDS ORDERED: MULTIVITAMINS/MINERALS THERAPEUTIC TAB PO SCH (21:00)
== END 2017-11-12 12:52 | disposition home health service (06) | DRG 470 ==
LOC: HSDI 08:14 → N06B 16:07
PROVIDERS: ADMIT Orthopaedic Surgery Sports Medicine; ATTEND Orthopaedic Surgery Sports Medicine
PROC: 3E0T3BZ Introduction of Anesthetic Agent into Peripheral Nerves and Plexi, Percutaneous Approach (ICD-10-PCS; 2017-11-11)
PROC: 0SRD0J9 Replacement of Left Knee Joint with Synthetic Substitute, Cemented, Open Approach (ICD-10-PCS; principal; 2017-11-11 11:11)
DX: M17.12 Unilateral primary osteoarthritis, left knee (principal); I10 Essential (primary) hypertension; I25.10 Atherosclerotic heart disease of native coronary artery without angina pectoris; Z79.82 Long term (current) use of aspirin; Z23 Encounter for immunization
CPT/HCPCS: 73560; 80048; 85027; 86850; 86900; 86901; 90686; 94150; C1776; C9290; J0690; J0735; J1100; J1580; J1650; J1885; J2250; J2405; J2795; J3010; J3370; J7030; J7050; J7120; L1830; Q2038

== ENCOUNTER 2018-11-10 05:56 | Inpatient (IN) ==
[2018-11-10] MEDS ORDERED: Sodium Chlor 0.9% Inj 500 ML IV.CONT ONE (06:30)
[2018-11-10] MEDS ORDERED: Metoprolol Tartrate 25 MG Tablet PO ONE (06:30)
[2018-11-10] MEDS ORDERED: Chlorhexidine Gluconate 2% 1 Pack (2 Cloths) TOPICAL ONE (06:30)
[2018-11-10] MEDS ORDERED: Sodium Chlor 0.9% Inj 73.07 ML, Ropivacaine 0.5% PF Inj 24.63 ML, Ketorolac Inj 30 MG, ... P-ARTICULR SCH ×5 (06:33)
[2018-11-10] MEDS ORDERED: Dexamethasone Inj 20 MG/5 ML Vial IV.PUSH SCH (06:33)
[2018-11-10] MEDS ORDERED: Chlorhexidine 4% Topical 120 APPLIC/120 ML Bottle TOPICAL SCH (06:45)
[2018-11-10] MEDS ORDERED: Bisacodyl 10 MG Supp RECTAL PRN (06:56)
[2018-11-10] MEDS ORDERED: Post-op Orders (for Pharmacy) OTHER STA (06:56)
[2018-11-10] MEDS ORDERED: Zolpidem Tartrate 5 MG Tablet PO PRN (06:56)
[2018-11-10] MEDS ORDERED: HYDROmorphone PF Inj 1 MG/ML Ampul IV.PUSH PRN (06:56)
[2018-11-10] MEDS ORDERED: SODIUM CHLOR 0.9% IV.SIG SCH (07:00)
[2018-11-10] MEDS ORDERED: ceFAZolin 2 GM Premix Inj 2 GM/50 ML PIGGYBACK IV.SIG SCH (07:00)
[2018-11-10] MEDS ORDERED: Vancomycin Inj 1,000 MG in Sodium Chlor 0.9% Inj 250 ML IV.SIG SCH (07:00)
[2018-11-10] MEDS ORDERED: Tranexamic Acid Inj 3,000 MG in Sodium Chlor 0.9% Inj 100 ML P-ARTICULR SCH (07:00)
[2018-11-10] MEDS ORDERED: TRANEXAMIC ACID IV.SIG SCH (07:00)
[2018-11-10] MEDS ORDERED: Propofol Inj 500 MG/50 ML Vial ONE (07:10)
[2018-11-10] MEDS ORDERED: Bupivacaine/Dextrose 0.75% Inj 2 ML Ampul ONE (07:10)
[2018-11-10] MEDS ORDERED: Lidocaine PF 1% Inj 5 ML Vial ONE (07:32)
[2018-11-10] MEDS ORDERED: Bupivacaine Liposomal PF 1.3% Inj 20 ML Vial ONE (07:33)
[2018-11-10] MEDS ORDERED: Bupivacaine 0.5% Inj 50 ML MDV Vial ONE (07:33)
--- NOTE | 2018-11-10 09:57 | P.OP ---
Procedure: PREOPERATIVE DIAGNOSIS: Right knee osteoarthritis. POSTOPERATIVE DIAGNOSIS: Right knee osteoarthritis. PROCEDURE PERFORMED: Right total knee arthroplasty. SURGEON: Dr. Alexandro Navarro M.D. COMMONWEALTH ATTORNEY: ANTHONY Zaragoza. ANESTHESIA: General with adductor canal femoral nerve block ESTIMATED BLOOD LOSS: 100 mL. COMPLICATIONS: None. IMPLANTS USED: Depuy Attune posterior stabilized femur 8 rotating platform tibia baseplate 8 polyethylene insert 6 patella 41 Tourniquet time 30 minutes at 250 mmHg Justification: The patient presents to the undersigned at [facility] with chief complaints of severe right knee pain. The pain is severe progressive and interferes [id number] was administered preoperative IV antibiotic. A well-padded tourniquet was placed in the right thigh. The right lower extremity was prepped and draped using isopropyl alcohol, Hibiclens solution, and ChloraPrep solution. After a timeout was performed an Esmarch bandage was used to exsanguinate the right lower extremity. The tourniquet was inflated to 250 mmHg. A longitudinal incision was made over the anterior aspect of the right knee. A medial parapatellar arthrotomy was performed. The patella was everted. A patellar resection guide was used to assist with patellar resection. The patella drill guide was then placed to allow for 3 drill holes within the patella. The patella trial fit well. Attention was then turned to the femur where a intramedullary guide kt was placed. The distal femoral guide was set to remove 10 mm of distal femur 5 degrees off the anatomic valgus axis alignment. An oscillating saw was used to perform the distal femoral cut. Attention was then turned to the tibia where extramedullary tibia guide was set to remove 5 mm off the lowest portion of the medial tibial plateau. The tibial guide was pinned in place and the tibial cut was performed. A 5 mm spacer block showed full extension. Attention was turned back to the femur with the AP sizing block used to assist with appropriate measurement and placement of the 3 degree external rotation AP cutting guide. The anterior, posterior and chamfer cuts were then performed. The PCL box guide was pinned in place and the PCL was boxed out with an oscillating saw. The medial and lateral meniscus remnants were removed as well as bone and soft tissue debris from the posterior portion of the knee. A tibia baseplate was then pinned in place and the tibia was drilled and punched. Trial components were evaluated and final components were then cemented in place. With the final components implanted the knee could achieve full extension to 0 degrees and flexion to 140, with no evidence of tibial liftoff. The testing of varus valgus balance appeared appropriate and symmetric with good stability. The patella was noted to track centrally. The tourniquet was deflated Bovie cautery was then used for hemostasis. The knee was then thoroughly irrigated with sterile saline pulse lavage antibiotic impregnated solution. The arthrotomy incision was closed with #1 Vicryl suture. The subcutaneous layer closed with 2-0 Vicryl suture. The skin incision was then closed with Dermabond. Sterile dressings were applied. The patient tolerated the procedure well with no intraoperative complications noted. Alexandro Hooper physician marketing assistant certified was present during the entire procedure to include patient positioning and the procedure itself. The medical necessity of a physician marketing assistant was indicated in this case due to the complexity of the procedure itself. He assisted with appropriate manipulation of the leg and also retraction of the muscle, tendon, bone and neurovascular structures. He assisted with preparation of bone and also implantation of the prosthetic replacement. There was a semiconductor development technician within the room that was focused on handling of instruments but was not available to assist with the actual surgery itself. Surgeon: Alexandro Rodriguez MD
--- NOTE | 2018-11-10 10:51 | XR ---
EXAM DATE: 11/10/2018 10:47 AM EST AGE/SEX: 73 years / Male INDICATIONS: Post-op right knee. CLINICAL DATA: This is the patient's initial encounter. Patient reports that signs and symptoms have been present for 1 day and indicates a pain score of Nonresponsive. MEDICAL/SURGICAL HISTORY: None. None. COMPARISON: No prior exams available for comparison. FINDINGS: The patient is status post right total knee arthroplasty with prosthesis in good position. There is n o acute fracture or dislocation. CONCLUSION: 1. Status post right total knee arthroplasty with prosthesis in good position. 2. No acute fracture or dislocation. Electronically signed by: He Noyola MD Board Certified Radiologist 11/10/2018 10:50 AM EST
[2018-11-10] MEDS: Carvedilol 6.25 MG Tablet PO SCH ×3 (10:55→20:13)
[2018-11-10] MEDS: Senna/Docusate Sodium 8.6/50 MG Tablet PO SCH ×2 (10:56→20:13)
[2018-11-10] MEDS: Multivitamin/Minerals Therapeutic Tablet PO SCH ×2 (10:56→20:13)
[2018-11-10] MEDS ORDERED: *Meperidine Inj 25 MG/ML Vial PERIprocedural Use ONLY ONE (13:32)
[2018-11-10] MEDS: ceFAZolin 2 GM Premix Inj 2 GM/50 ML PIGGYBACK IV.SIG SCH ×3 (14:40→21:10)
[2018-11-11] MEDS: ceFAZolin 2 GM Premix Inj 2 GM/50 ML PIGGYBACK IV.SIG SCH ×2 (01:35→01:36)
[2018-11-11 05:17] VITALS: TEMP 97.2
[2018-11-11 07:01] LABS: Hematocrit 36.1 % (39.0-51.0); Hemoglobin 12.3 gm/dL (13.0-17.0)
--- NOTE | 2018-11-11 08:11 | P.PNOP ---
Subjective Interval history: pain controlled. doing well. Physical Exam Vital signs: Vital Signs 11/10/18 10:15 11/10/18 10:30 11/10/18 10:45 Temperature 98 F Pulse Rate 48 L 42 L 43 L Respiratory Rate 13 12 15 Blood Pressure 127/60 137/71 125/63 Pulse Oximetry 93 L 97 98 11/10/18 11:00 11/10/18 11:07 11/10/18 11:15 Temperature Pulse Rate 49 L 47 L 45 L Respiratory Rate 15 12 Blood Pressure 134/66 126/64 Pulse Oximetry 97 97 97 11/10/18 11:30 11/10/18 12:00 11/10/18 13:00 Temperature Pulse Rate 45 L 80 70 Respiratory Rate 13 15 13 Blood Pressure 125/58 L 141/77 H 114/56 L Pulse Oximetry 98 97 95 11/10/18 14:01 11/10/18 14:59 11/10/18 15:04 Temperature Pulse Rate 52 L 75 Respiratory Rate 13 Blood Pressure 123/58 L Pulse Oximetry 95 94 L 11/10/18 15:05 11/10/18 16:00 11/10/18 17:00 Temperature 97.5 F L Pulse Rate 77 60 62 Respiratory Rate 12 20 18 Blood Pressure 96/65 L 127/61 114/55 L Pulse Oximetry 95 94 L 95 11/10/18 17:30 11/10/18 19:57 11/10/18 19:58 Temperature 97.2 F L Pulse Rate 50 L Respiratory Rate 14 18 18 Blood Pressure 115/61 Pulse Oximetry 94 L 11/10/18 20:00 11/10/18 21:11 11/11/18 00:00 Temperature 97.0 F L 97.1 F L Pulse Rate 46 L 54 L Respiratory Rate 18 18 18 Blood Pressure 125/59 L 123/60 Pulse Oximetry 92 L 93 L 11/11/18 04:00 Temperature 97.2 F L Pulse Rate 47 L Respiratory Rate 18 Blood Pressure 126/57 L Pulse Oximetry 95 Intake & Output 11/10/1818 11/11/18 18:59 06:59 18:59 Intake Total 1790 / 1790 1731 / 1731 Output Total 1900 / 1900 900 / 900 Balance -110 / -110 831 / 831 Weight 87.9 kg 103.9 kg Intake: IV 100 / 100 1350 / 1350 LR 1000 mL Inj 1,000 ML @ 80 0 / 0 1000 / 1000 mls/hr IV.CONT .[id number] [facility] Rx# :[id number] Vancomycin Inj 1,000 MG In NS 250 / 250 Inj 250 ML @ 250 mls/hr IV.SIG ALUMINUM SIDING MECHANIC PAULA Rx#:[id number] Ancef 2 GM Premix Inj 2 gm In 100 / 100 100 / 100 50 ml @ 100 mls/hr IV.SIG Q6H PAULA Rx#:[id number] Oral 490 / 490 381 / 381 Anesthesia Amount 1200 / 1200 Output: Estimated Blood Loss 100 / 100 Urine Amount (Catheter) 1800 / 1800 900 / 900 Coude 1800 / 1800 900 / 900 Other: Date of Last Bowel Movement 11/10/18 Weight On Admission 87.9 kg Narrative: in bed, nad, using cpm dressing c/d/i neg murali nvi - Urinary Catheter Management Coude Cath placed during this visit: yes Reason for continuing: Acute urinary retention Insertion date: 11/10/18 Insertion time: 17:30 Results - Labs CBC & Chem 7: 11/11/18 05:49 Laboratory Results - last 24 hr 11/11/18 05:49 Hgb 12.3 L Hct 36.1 L - Imaging Impressions Knee X-Ray 11/10/18 06:55 CONCLUSION: 1. Status post right total knee arthroplasty with prosthesis in good position. 2. No acute fracture or dislocation. Assessment and Plan - Ortho Post Op Day # 1 - Assessment and Plan s/p R TKA wbat maintain dressing unless saturated asa 81 d/c planning home with PT f/up dr. santiago 2 weeks cleared today
[2018-11-11] MEDS: Multivitamin/Minerals Therapeutic Tablet PO SCH (09:00)
[2018-11-11] MEDS: Carvedilol 6.25 MG Tablet PO SCH (09:00)
[2018-11-11] MEDS: Senna/Docusate Sodium 8.6/50 MG Tablet PO SCH (12:10)
[2018-11-11 17:00] VITALS: BP 145/77; PULSE 52; RESP 20; O2SAT 98
--- NOTE | 2018-11-13 10:21 | MD ---
cc: Alexandro Rodriguez MD DATE OF DISCHARGE: 11/11/2018 ADMITTING DIAGNOSIS: Severe degenerative osteoarthritis, right knee. DISCHARGE DIAGNOSIS: Severe degenerative osteoarthritis, right knee. HISTORY OF PRESENT ILLNESS: Mr. Schwarz is a 73-year-old male who presented to the orthopedic clinic for evaluation regarding progressive right knee pain. The patient states the pain has been present for many years and is currently limiting his ability to ambulate safely. He notes his left knee is doing very well, as he has a history of left total knee arthroplasty. His right knee has no alleviating factors, although he has tried medications, assistive devices, physical therapy, home exercise program and injections without relief of symptoms. He has x-ray evidence of severe degenerative changes of the right knee. While in the office, the patient was counseled on the diagnosis and treatment options. Risks, benefits, and indications were all discussed. The patient did elect to proceed with surgical intervention to include a right total knee arthroplasty. The day of surgery: 11/10/2018 right total knee arthroplasty. Postop after surgery, patient admitted to [facility] where he received appropriate medical management, pain control, DVT prophylaxis, as well as physical therapy, discharged. Once being discharged from the hospital, the patient was then cleared to go home where he will receive physical therapy. He is in stable condition. He may weight bear as tolerated. He is instructed on wound care management. The patient has been provided prescriptions for pain control and DVT prophylaxis medication. He has also been provided a followup appointment approximately 2 weeks from date of surgery. The patient has asked appropriate questions which have been answered. The patient has been discharged. Dictated by MADI Zaragoza Alexandro Rodriguez MD JWM/deep , 02:15 PM , 02:21 PM
== END 2018-11-11 16:15 | disposition home or self-care (01) ==
LOC: HSDI 05:56 → N06 17:19
PROVIDERS: ADMIT Orthopaedic Surgery Sports Medicine; ATTEND Orthopaedic Surgery Sports Medicine